=== PATIENT | female | born 1980 | race Caucasian/White ===

== ENCOUNTER → 2024-07-15 | Outpatient (CLI) | payer OTHER ==
[2024-07-15 18:58] LABS: Basophils # (A) 0.05 X 10*3/uL (0.00-0.10); Basophils % (A) 0.6 %; Eosinophils # (A) 0.01 X 10*3/uL (0.04-0.35); Eosinophils % (A) 0.1 %; HCT 48.3 % (37.2-46.3); HGB 16.3 g/dL (12.0-15.0); Lymphocytes # (A) 1.65 X 10*3/uL (0.90-5.00); Lymphocytes % (A) 19.7 %; MCH 33.8 pg (27.0-32.0); MCHC 33.7 g/dL (32.0-37.0); MCV 100.2 FL (80.0-97.0); Mean Platelet Volume 10.5 FL (9.5-12.2); Monocytes # (A) 0.56 X 10*3/uL (0.20-1.00); Monocytes % (A) 6.7 %; NRBC Per 100 WBC 0 X 10*3/uL (0.00-0.01); Neutrophils # (A) 6.08 X 10*3/uL (1.80-7.70); Neutrophils % (A) 72.5 %; Platelet Count 300 X 10*3/uL (140-440); RBC 4.82 X 10*6/uL (4.10-5.20); RDW 13.2 % (11.5-14.5); WBC 8.38 X 10*3/uL (4.50-10.00)
[2024-07-15 19:21] LABS: Blood Urea Nitrogen 13.2 mg/dL (9.0-27.0); Carbon Dioxide 19.6 mmol/L (21.6-31.8); Chloride 101 mmol/L (96-109); Glucose 96 mg/dL (70-110); Potassium 3.8 mmol/L (3.5-5.5); Sodium 136 mmol/L (135-145)
== END | disposition home or self-care (01) ==
LOC: LABPAT 12:44
PROVIDERS: ATTEND Urology
DX: Z01.812 Encounter for preprocedural laboratory examination (principal); N20.0 Calculus of kidney
CPT/HCPCS: 80048; 85025

== ENCOUNTER 2024-07-20 10:28 | Day surgery (SDC) | payer OTHER ==
[2024-07-19 09:11] VITALS: BMI 26.5
[~2024-07-20 10:28] MED LIST: HYDROmorphone 0.5 MG/0.5 ML SYRINGE IVP PRN; LIDOCAINE 1% (10MG/ML) FOR IV START INTRADERMA PRN; fentaNYL (PF) 50 MCG/ML 2 ML AMP IVP PRN
--- NOTE | 2024-07-20 10:58 | XR ---
EXAMINATION TYPE: XR KUB DATE OF EXAM: 07/20/2024 10:44 AM COMPARISON: None CLINICAL INDICATION: Female, 44 years old with history of calculus of kidney; PHH, pain, preop left-s ided kidney stone. TECHNIQUE: One radiographic view of the abdomen was obtained. FINDINGS: Nonobstructive bowel gas pattern. No significant stool burden. Somewhat ahaustral appearanc e to the left side of the colon. 1 cm calcification left mid abdomen. IMPRESSION: 1. A 1 cm left renal stone. 2. Somewhat a haustral appearance to the left side of the colon. Query any symptoms of underlying col itis versus any known chronic process. [facility], , 07/20/2024 10:55 AM
[2024-07-20] MEDS: ONDANSETRON 4 MG/2 ML VIAL IVP ONE (11:24)
[2024-07-20] MEDS: DEXAMETHASONE SOD PHOSPHATE 4 MG/ML 1 ML VIAL IV ONE (11:24)
[2024-07-20] MEDS: LACTATED RINGERS 1,000 ML IV SCH (11:24)
[2024-07-20] MEDS: MIDAZOLAM 2 MG/2 ML VIAL IV PRN (11:43)
[2024-07-20] MEDS: IV FLUID CONTINUATION 1,000 ML IV ONE (11:46)
--- NOTE | 2024-07-20 11:51 | P.HPIHPCON ---
History of Present Illness H&P Date: 07/20/24 Chief Complaint: Left renal stone This is a 44-year-old female with a history of a 1 cm left-sided renal pelvic stone. She is symptomatic from her stone. Option of left-sided ureteroscopy with holmium laser versus ESWL was discussed with her in detail. She agreed to proceed with left-sided ureteroscopy with holmium laser, she is aware of the risk which include but not limited to bleeding, infection, injury to the ureter Consent for Procedure: I have explained the operation/procedure to the patient, including the risks, benefits, side effects, alternative therapies (including not receiving the proposed treatment or service), the likelihood of the patient achieving his/her goals, and potential recuperation problems for the procedure/sedation/analgesia, as well as any blood products, if indicated. I also explained to the patient the risks, benefits and side effects of the alternatives, as well as the risks related to not receiving the proposed procedure, care, treatment, or services. Past Medical History Past Medical History: No Reported History Additional Past Medical History / Comment(s): L side Kidney stone History of Any Multi-Drug Resistant Organisms: None Reported Past Surgical History: Tonsillectomy Past Anesthesia/Blood Transfusion Reactions: No Reported Reaction Additional Past Anesthesia/Blood Transfusion Reaction / Comment(s): No hx of blood transfusion Smoking Status: Never smoker - Past Family History Father Family Medical History: No Reported History Medications and Allergies Home Medications Medication Instructions Recorded Confirmed Type Acetaminophen [Tylenol 8 Hour] 650 mg PO Q8H PRN 07/19/24 07/20/24 History Ketorolac [Toradol] 10 mg PO Q6HR 07/19/24 07/19/24 History Allergies Allergy/AdvReac Type Severity Reaction Status Date / Time No Known Allergies Allergy Verified 07/20/24 10:56 Surgical - Exam Vital Signs Temp Pulse Resp BP Pulse Ox 98.5 F 64 16 142/76 97 07/20/24 11:09 07/20/24 11:09 07/20/24 11:09 07/20/24 11:09 07/20/24 11:09 - General no distress, moderate pain - Eyes normal ocular movement, no pale - ENT normal nares, normal mucosa - Respiratory normal expansion, normal respiratory effort - Abdomen Abdomen: soft, non tender, no distended Assessment and Plan Assessment: OR for left-sided ureteroscopy, laser lithotripsy, stone basketing and stent insertion
[2024-07-20] MEDS ORDERED: SUCCINYLCHOLINE CHLORIDE 200 MG/10 ML VIAL IV ONE (11:57)
[2024-07-20] MEDS ORDERED: MIDAZOLAM 2 MG/2 ML VIAL ONE (11:57)
[2024-07-20] MEDS ORDERED: LIDOCAINE 1% INJ 10MG/ML (20 ML MDV) ONE (11:57)
[2024-07-20] MEDS ORDERED: PROPOFOL 10 MG/ML 20 ML VIAL IV ONE (11:57)
[2024-07-20] MEDS ORDERED: fentaNYL (PF) 50 MCG/ML 2 ML AMP ONE (11:57)
[2024-07-20] MEDS: ceFAZolin 2 GM in DEXTROSE 5% IN WATER 50 ML IVPB PRN (12:00)
[2024-07-20 13:08] VITALS: TEMP 96.9
--- NOTE | 2024-07-20 13:14 | P.OP ---
Date of Procedure: 07/20/24 Preoperative Diagnosis: Left renal stone Postoperative Diagnosis: Same Procedure(s) Performed: Cystoscopy, left ureteroscopy, holmium laser lithotripsy, stone basketing and stent insertion Implants: 6 Israeli by 24 cm stent in the left ureter Anesthesia: BIMAL Surgeon: Barron Meadows Estimated Blood Loss (ml): 5 Pathology: other (left renal stone) Condition: stable Disposition: PACU Indications for Procedure: This is a 44-year-old female with a history of a 1 cm left-sided renal pelvic stone. She is symptomatic from her stone. Option of left-sided ureteroscopy with holmium laser versus ESWL was discussed with her in detail. She agreed to proceed with left-sided ureteroscopy with holmium laser, she is aware of the risk which include but not limited to bleeding, infection, injury to the ureter Operative Findings: Large left-sided renal pelvis stone Description of Procedure: Patient brought to the operating room, general anesthesia was induced. She was prepped and draped in sterile fashion placed in a dorsolithotomy position. Cystoscopy fitted the 21 Israeli sheath was inserted per urethra, cystoscopy was performed which showed no abnormality within the bladder. Attention was then carried to the left ureteral orifice which was intubated with a sensor wire, the wire was advanced under fluoroscopy into the kidney. Next an [id number] Israeli access sheath was passed over the wire into the proximal ureter. Next a flexible ureteroscope was inserted through the access sheath, renoscopy was performed showed a large stone in the renal pelvis. Using the holmium laser the stone was fragmented. Stone fragments were removed using the stone basket. Repeat renoscopy showed no sizable fragments or injury to the kidney. On fluoroscopy there was no radiopaque density seen. Pullback ureteroscopy was performed showed no injury to the ureter or any ureteral stones. As a ureteroscope was withdrawn a sensor wire was advanced through. Next a ureteral stent was passed over the wire, the proximal curl was visualized on fluoroscopy and the distal curl was visualized using the cystoscope. The bladder was emptied at the end of the case. Patient tolerated procedure was taken to recovery in stable condition
[2024-07-20] MEDS: KETOROLAC 15 MG/ML 1 ML VIAL IVP STA (13:49)
[2024-07-20 14:14] VITALS: BP 139/89; PULSE 63; RESP 14
--- NOTE | 2024-07-20 15:11 | FL ---
EXAMINATION TYPE: FL guidance operating room DATE OF EXAM: 07/20/2024 FLUOROSCOPY 43 SEC FLURO TIME [id number] DAP Images during urologic procedure. 5 images are submitted. [facility], , 07/20/2024 3:09 PM
== END 2024-07-20 14:22 | disposition home or self-care (01) ==
LOC: OR 10:28
PROVIDERS: ATTEND Urology
DX: N20.0 Calculus of kidney (principal); Z79.1 Long term (current) use of non-steroidal anti-inflammatories (NSAID)
CPT/HCPCS: 52356; 81025; 82365; 74018; C2625; C1769; J2250; J0330; J1100; J0690; J2405; J2003; J3010; J1885; J2704